=== PATIENT | female | born 1995 | race Caucasian/White ===

== ENCOUNTER 2024-06-01 05:20 | Inpatient (IN) | payer BC ==
[~2024-06-01 05:20] MED LIST: Lactated Ringers 1,000 ML IV SCH; Sodium Chloride 0.9% 10 ML Syringe FLUSH PRN; Sodium Chloride 0.9% 10 ML Syringe FLUSH SCH
[2024-06-01] MEDS: Lactated Ringers 1,000 ML IV SCH (06:00)
[2024-06-01 06:03] LABS: HEMATOCRIT 39.9 % (37.0-47.0); HEMOGLOBIN 13.3 gm/dl (12.0-16.0); MEAN CORPUSCULAR HEMOGLOBIN 28.9 pg (28.0-32.0); MEAN CORPUSCULAR HGB CONC 33.3 g/dl (32.0-36.0); MEAN CORPUSCULAR VOLUME 86.6 fl (83.0-99.0); MEAN PLATELET VOLUME 11.1 fl (9.4-12.3); PLATELET COUNT,PLT 195 K/mm3 (150-400); RED BLOOD CELL COUNT 4.61 M/mm3 (4.10-5.30); WHITE BLOOD CELL COUNT,WBC 8.47 K/mm3 (3.9-11.3)
[2024-06-01] MEDS ORDERED: Morphine PF 10 MG/10 ML SDV ONE (07:07)
[2024-06-01] MEDS: Citric Acid/Sodium Citrate Solution 30 ML Cup PO ONE (07:11)
[2024-06-01] MEDS: Metoclopramide 10 MG/2 ML SDV IVPUSH ONE (07:11)
[2024-06-01] MEDS ORDERED: ePHEDrine 50 MG/ML SDV ONE (07:12)
[2024-06-01] MEDS ORDERED: ceFAZolin 2 GM Vial ONE (07:25)
[2024-06-01] MEDS ORDERED: Sodium Chloride 0.9% 100 ML ONE (07:27)
[2024-06-01] MEDS ORDERED: Phenylephrine 1% 10 MG/ML SDV ONE (07:27)
[2024-06-01] MEDS ORDERED: Oxytocin/0.9 % Sodium Chloride 30 UNIT/500 ML BAG IV SCH (07:30)
[2024-06-01] MEDS ORDERED: ceFAZolin 2 GM in Water For Injection, Sterile 20 ML IV PRN (07:45)
[2024-06-01] MEDS ORDERED: fentaNYL 100 MCG/2 ML SDV IVPUSH PRN (07:49)
[2024-06-01] MEDS ORDERED: Meperidine 50 MG/ML Vial IVPUSH PRN (07:49)
[2024-06-01] MEDS ORDERED: Ondansetron 4 MG/2 ML SDV IVPUSH PRN ×2 (07:49→18:27)
[2024-06-01] MEDS ORDERED: diphenhydrAMINE 50 MG/ML SDV IVPUSH PRN (07:49)
[2024-06-01] MEDS ORDERED: Ketorolac 30 MG/ML SDV ONE (08:09)
[2024-06-01] MEDS ORDERED: ePHEDrine 50 MG/ML SDV IVPUSH PRN (08:50)
[2024-06-01] MEDS ORDERED: Naloxone 0.4 MG/ML SDV IVPUSH PRN (08:50)
[2024-06-01] MEDS: Ondansetron 4 MG/2 ML SDV IVPUSH ONE (09:08)
[2024-06-01] MEDS: diphenhydrAMINE 50 MG/ML SDV IVPUSH PRN (09:22)
[2024-06-01] MEDS: Promethazine 25 MG Supp RECTAL ONE (11:03)
[2024-06-01] MEDS: Dextrose 5%-Lactated Ringers 1,000 ML IV SCH (12:45)
[2024-06-01] MEDS: Lactated Ringers 1,000 ML IV ONE (13:50)
[2024-06-01] MEDS: Scopalamine 1mg/3day Transdermal Patch TOP ONE (14:55)
[2024-06-01] MEDS: Ketorolac 30 MG/ML SDV IVPUSH SCH (14:56)
[2024-06-01] MEDS: Acetaminophen 325 MG Tab PO PRN (20:21)
[2024-06-02 05:51] LABS: BASOPHILS PERCENT AUTO 0.2 % (0.0-1.0); EOSINOPHILS PERCENT AUTO 0.3 % (0.0-6.0); HEMATOCRIT 33.4 % (37.0-47.0); IMMATURE GRAN ABSOLUTE AUTO 0.03 K/mm3 (0.00-0.05); IMMATURE GRAN PERCENT AUTO 0.3 % (0.0-0.4); LYMPHOCYTES PERCENT AUTO 19.2 % (24.0-44.0); MEAN CORPUSCULAR HEMOGLOBIN 29.1 pg (28.0-32.0); MEAN CORPUSCULAR HGB CONC 32.6 g/dl (32.0-36.0); MEAN CORPUSCULAR VOLUME 89.1 fl (83.0-99.0); MEAN PLATELET VOLUME 11.4 fl (9.4-12.3); MONOCYTES ABSOLUTE AUTO 0.9 K/mm3 (0.0-0.8); MONOCYTES PERCENT AUTO 9.2 % (0.0-8.0); NEUTROPHILS ABSOLUTE AUTO 7.2 K/mm3 (1.8-7.7); NEUTROPHILS PERCENT AUTO 70.8 % (41.0-71.0); PLATELET COUNT,PLT 171 K/mm3 (150-400); RED BLOOD CELL COUNT 3.75 M/mm3 (4.10-5.30); WHITE BLOOD CELL COUNT,WBC 10.17 K/mm3 (3.9-11.3)
[2024-06-02 06:02] LABS: HEMOGLOBIN 10.9 gm/dl (12.0-16.0)
[2024-06-02] MEDS ORDERED: oxyCODONE 5 MG Tab PO PRN (08:00)
[2024-06-02] MEDS: Ibuprofen 600 MG Tab PO SCH (08:32)
[2024-06-03 14:42] LABS: HCV AB BY CIA INTERP Negative (Negative); HEPC AB BY CIA INDEX 0.09 IV
== END 2024-06-03 13:41 | disposition home or self-care (01) | DRG 788 ==
LOC: JD.OB 05:20
PROVIDERS: ADMIT Obstetrics & Gynecology; ATTEND Obstetrics & Gynecology
PROC: 30233S1 Transfusion of Nonautologous Globulin into Peripheral Vein, Percutaneous Approach (ICD-10-PCS; principal; 2024-06-01 07:30)
PROC: 10D00Z1 Extraction of Products of Conception, Low, Open Approach (ICD-10-PCS; principal; 2024-06-01 07:30)
DX: O34.219 Maternal care for unspecified type scar from previous cesarean delivery (principal); K21.9 Gastro-esophageal reflux disease without esophagitis; O99.62 Diseases of the digestive system complicating childbirth; Z88.0 Allergy status to penicillin; Z88.8 Allergy status to other drugs, medicaments and biological substances; Z79.899 Other long term (current) drug therapy; Z3A.39 39 weeks gestation of pregnancy; Z37.0 Single live birth
CPT/HCPCS: 01961; 36415; 59025; 85025; 85027; 85461; 86592; 86803; 86850; 86870; 86900; 86901; A9270-GY; J0690; J1200; J1885; J2274; J2371; J2405; J2765; J2791; J3490; J7120; J7121; J7999